=== PATIENT | female | born 1965 | race Two or more races ===

== ENCOUNTER 2017-06-08 09:45 | Day surgery (SDC) | payer OTHER | END 2017-06-08 15:35 | disposition home or self-care (01) | LOC: AMB-ENDOS 09:45 | DX: K57.32 Diverticulitis of large intestine without perforation or abscess without bleeding (principal); K64.1 Second degree hemorrhoids ==

== ENCOUNTER 2017-09-19 13:14 | Outpatient (CLI) | payer OTHER ==
[2017-09-20] MEDS ORDERED: SYNTHROID100 MCG PO (11:46)
[2017-09-20] MEDS ORDERED: ZANTAC300 MG PO (11:46)
[2017-09-20] MEDS ORDERED: RESTORIL30 M1 PO (11:47)
[2017-09-20] MEDS ORDERED: PEPCID20 MG PO (11:47)
[2017-09-20] MEDS ORDERED: CYMBALTA60 MG PO (11:47)
[2017-09-20] MEDS ORDERED: CRESTOR10 MG PO (11:47)
[2017-09-20] MEDS ORDERED: SINGULAIR10 MG PO (11:48)
[2017-09-20] MEDS ORDERED: [UNRECOGNIZED DRUG - OTHER] PO (11:48)
== END 2017-09-19 13:19 | disposition home or self-care (01) ==
LOC: RAD 13:14
DX: K57.20 Diverticulitis of large intestine with perforation and abscess without bleeding (principal); K57.32 Diverticulitis of large intestine without perforation or abscess without bleeding; K58.8 Other irritable bowel syndrome

== ENCOUNTER 2017-09-19 14:01 | Inpatient (IN) | payer OTHER ==
[~2017-09-19] VITALS: Ht 160 cm; Wt 65.8 kg
[2017-09-20] MEDS ORDERED: ZANTAC300 MG PO (11:46)
[2017-09-20] MEDS ORDERED: SYNTHROID100 MCG PO (11:46)
[2017-09-20] MEDS ORDERED: PEPCID20 MG PO (11:47)
[2017-09-20] MEDS ORDERED: RESTORIL30 M1 PO (11:47)
[2017-09-20] MEDS ORDERED: CYMBALTA60 MG PO (11:47)
[2017-09-20] MEDS ORDERED: CRESTOR10 MG PO (11:47)
[2017-09-20] MEDS ORDERED: [UNRECOGNIZED DRUG - OTHER] PO (11:48)
[2017-09-20] MEDS ORDERED: SINGULAIR10 MG PO (11:48)
== END 2017-09-30 16:10 | disposition home or self-care (01) | DRG 331 ==
LOC: O/R 09-25 05:10 → SURH 09-25 05:10 → SURG 09-25 13:15 → SURH 09-30 16:10
PROVIDERS: Colon & Rectal Surgery
PROC: 0DJD8ZZ Inspection of Lower Intestinal Tract, Via Natural or Artificial Opening Endoscopic (ICD-10-PCS; 2017-09-25)
PROC: 0DTN4ZZ Resection of Sigmoid Colon, Percutaneous Endoscopic Approach (ICD-10-PCS; principal; 2017-09-25 16:45)
PROC: 02HV33Z Insertion of Infusion Device into Superior Vena Cava, Percutaneous Approach (ICD-10-PCS; 2017-09-26)
DX: K57.32 Diverticulitis of large intestine without perforation or abscess without bleeding (principal)

== ENCOUNTER 2018-01-19 20:04 | Emergency (ER) | payer OTHER ==
[~2018-01-19] VITALS: Ht 160 cm; Wt 5.4 kg
[~2018-01-19 20:04] MED LIST: CRESTOR10 MG PO; CYMBALTA60 MG PO; PEPCID20 MG PO; RESTORIL30 M1 PO; SINGULAIR10 MG PO; SYNTHROID100 MCG PO; ZANTAC300 MG PO; [UNRECOGNIZED DRUG - OTHER] PO
[2018-01-20] MEDS ORDERED: PERCOCET 5-3251 EACH PO (00:54)
== END 2018-01-20 01:23 | disposition home or self-care (01) ==
LOC: ER 20:04
DX: S82.65XA Nondisplaced fracture of lateral malleolus of left fibula, initial encounter for closed fracture (principal); W18.39XA Other fall on same level, initial encounter; Y93.89 Activity, other specified; Y92.89 Other specified places as the place of occurrence of the external cause; Y99.8 Other external cause status

== ENCOUNTER 2018-10-04 05:40 | Day surgery (SDC) | payer OTHER ==
[~2018-10-04 05:40] MED LIST changes: +PERCOCET 5-3251 EACH PO
== END 2018-10-04 10:47 | disposition home or self-care (01) ==
LOC: AMB-ENDOS 05:40
DX: K57.32 Diverticulitis of large intestine without perforation or abscess without bleeding (principal); K64.1 Second degree hemorrhoids

== ENCOUNTER 2019-08-15 09:14 | Day surgery (SDC) | payer OTHER | END 2019-08-15 13:05 | disposition home or self-care (01) | LOC: AMB-ENDOS 09:14 → ADM 14:45 → AMB-ENDOS 14:45 | PROVIDERS: ATTEND Colon & Rectal Surgery | DX: D12.4 Benign neoplasm of descending colon (principal); K64.1 Second degree hemorrhoids ==

== ENCOUNTER → 2020-02-04 | Outpatient (CLI) | payer OTHER ==
[~2020-02-04] VITALS: Ht 162.6 cm; Wt 67.1 kg
[~2020-02-04] MED LIST changes: +BENTYL PO; +BREO; +DETROL LA4 MG PO; +FLONASE NASAL; +PROTONIX40 M1 PO; +RESTORIL15 M1 PO; +SPIRIVA; +SYNTHROID88 MCG PO
== END | disposition home or self-care (01) ==
LOC: LAB 07:00 → RECOVERY 02-11 10:15 → EDSTATUS 02-11 10:15
PROVIDERS: ATTEND Colon & Rectal Surgery
DX: U07.1 COVID-19 (principal); K57.32 Diverticulitis of large intestine without perforation or abscess without bleeding; K57.20 Diverticulitis of large intestine with perforation and abscess without bleeding; K58.8 Other irritable bowel syndrome; I10 Essential (primary) hypertension

== ENCOUNTER 2020-04-13 11:15 | Inpatient (IN) | payer OTHER ==
[~2020-04-13] VITALS: Ht 160 cm; Wt 68.0 kg
[2020-04-28] MEDS ORDERED: PHENERGAN25 MG (08:41)
[2020-04-28] MEDS ORDERED: DICYCLOMINE HCL10 MG (08:41)
[2020-04-28] MEDS ORDERED: CLONAZEPAM0.5 MG (08:42)
[2020-04-28] MEDS ORDERED: BUTALB-ACETAMI1 EACH (08:42)
[2020-04-28] MEDS ORDERED: BREO ELLIPTA I1 EACH (08:42)
[2020-04-28] MEDS ORDERED: CYCLOBENZAPRINE10 MG (08:42)
[2020-04-28] MEDS ORDERED: FLONASE16 GM (08:42)
[2020-04-28] MEDS ORDERED: LINZESS145 MCG (08:42)
[2020-04-28] MEDS ORDERED: PROAIR HFA8.5 GM (08:43)
== END 2020-04-30 20:04 | disposition home or self-care (01) | DRG 358 ==
LOC: SURH 04-27 04:30 → O/R 04-27 04:30 → SURG 04-27 04:30 → O/R 04-27 08:30 → SURG 04-27 13:05 → SURH 04-27 14:32 → O/R 04-27 21:45 → SURH 04-30 20:04
PROVIDERS: ADMIT Colon & Rectal Surgery; ATTEND Colon & Rectal Surgery
PROC: 07BB4ZX Excision of Mesenteric Lymphatic, Percutaneous Endoscopic Approach, Diagnostic (ICD-10-PCS; principal; 2020-04-27 21:45)
DX: I88.0 Nonspecific mesenteric lymphadenitis (principal)

== ENCOUNTER → 2020-09-24 08:00 | Outpatient (CLI) | payer OTHER ==
[~2020-09-24 08:00] MED LIST changes: +BREO ELLIPTA I1 EACH; +BUTALB-ACETAMI1 EACH; +CLONAZEPAM0.5 MG; +CYCLOBENZAPRINE10 MG; +DICYCLOMINE HCL10 MG; +FLONASE16 GM; +LINZESS145 MCG; +PHENERGAN25 MG; +PROAIR HFA8.5 GM
== END | disposition home or self-care (01) ==
LOC: AMB-ENDOS → LAB 08:00 → AMB-ENDOS 10-01 13:24 → EDSTATUS 10-01 15:09
PROVIDERS: ATTEND Colon & Rectal Surgery
DX: Z03.818 Encounter for observation for suspected exposure to other biological agents ruled out (principal); K57.20 Diverticulitis of large intestine with perforation and abscess without bleeding; K57.32 Diverticulitis of large intestine without perforation or abscess without bleeding; K58.2 Mixed irritable bowel syndrome; Z20.828 Contact with and (suspected) exposure to other viral communicable diseases

== ENCOUNTER 2020-11-05 05:45 | Day surgery (SDC) | payer OTHER | END 2020-11-05 10:40 | disposition home or self-care (01) | LOC: AMB-ENDOS 05:45 | PROVIDERS: ATTEND Colon & Rectal Surgery | DX: K57.32 Diverticulitis of large intestine without perforation or abscess without bleeding (principal); K64.1 Second degree hemorrhoids; Z20.822 Contact with and (suspected) exposure to COVID-19 ==